=== PATIENT | male | born 1985 | race Caucasian/White ===

== ENCOUNTER → 2025-07-29 | Outpatient (CLI) | payer OTHER ==
--- NOTE | 2025-07-29 19:12 | HMCIMG ---
EXAM: MR RIGHT SHOULDER WITHOUT CONTRAST CLINICAL HISTORY: 39 year-old male with unspecified osteoarthritis. TECHNIQUE: Multiplanar multisequence magnetic resonance images were obtained WITHOUT contrast. CONTRAST: None COMPARISON: None FINDINGS: JOINTS: Mild degenerative changes of the acromioclavicular joint with mild capsule hypertrophy. Small glenohumeral joint effusion. BONE: No acute fracture or focal osseous lesion. SOFT TISSUES: Mild tendinopathy of supraspinatus and infraspinatus, but no discrete tear. Peripheral supraspinatus involvement. IMPRESSION: 1. Mild tendinopathy of supraspinatus and infraspinatus without discrete tear. 2. Small glenohumeral joint effusion. 3. Mild degenerative changes of the acromioclavicular joint with mild capsule hypertrophy. /[place]
== END | disposition home or self-care (01) ==
LOC: RAH 10:34
PROVIDERS: ATTEND Student in an Organized Health Care Education/Training Program
DX: M19.011 Primary osteoarthritis, right shoulder (principal); M25.811 Other specified joint disorders, right shoulder; M25.411 Effusion, right shoulder; M67.911 Unspecified disorder of synovium and tendon, right shoulder
CPT/HCPCS: 73221

== ENCOUNTER 2025-08-16 08:26 | Day surgery (SDC) | payer OTHER ==
[2025-08-14 10:25] LABS: IMMATURE GRANULOCYTE ABSOLUTE 0.01 K/uL (0-1); NUCLEATED RED BLOOD CELLS 0.0 % (0.0-0.19); PLATELET COUNT (AUTO) 285 K/uL (130-400); RED BLOOD CELL COUNT(AUTO) 4.61 MIL/uL (4.50-6.20); RED CELL DISTRIBUTION WIDTH 11.8 % (11.0-15.5); WHITE BLOOD COUNT (AUTO) 5.2 K/uL (4.8-10.8)
[2025-08-14 10:28] VITALS: BP 140/78; PULSE 77; RESP 13; TEMP 98.1
[2025-08-14 10:36] LABS: CREATININE 1.0 mg/dL (0.5-1.3); GLOMERULAR FILTR. RATE CALC 98.0 mL/min (>90); GLUCOSE,RANDOM 86.0 mg/dL (70-105); SODIUM SERUM 137.0 mmol/L (136-145); UREA NITROGEN, BLOOD 14.0 mg/dL (7-18)
[2025-08-14 10:38] LABS: INR 0.95 (0.85-1.15)
[~2025-08-16] VITALS: Ht 348 cm; Wt 105.3 kg
[2025-08-16] VITALS (12 sets, daily range): BP systolic 122–150; BP diastolic 56–88; PULSE 56–82; RESP 15–18; TEMP 97.3–97.8
[~2025-08-16 08:26] MED LIST: ZOLP-684 PO
[2025-08-16] MEDS: LACTATED RINGERS 1000ML 1,000 ML IV ONE (09:08)
[2025-08-16] MEDS ORDERED: LIDOCAINE PF 100MG/5ML (2%) SYRINGE 5ML ONE (10:20)
[2025-08-16] MEDS ORDERED: MIDAZOLAM HCL 1 MG/ML 2ML VIAL ONE (10:24)
[2025-08-16] MEDS ORDERED: HYDR-4060 PO (11:03)
[2025-08-16] MEDS ORDERED: CYCL-309 PO (11:03)
[2025-08-16] MEDS ORDERED: SUGAMMADEX SODIUM 200 MG/2 ML VIAL IV ONE (13:54)
--- NOTE | 2025-08-16 15:48 | OP ---
Operative Note: DATE OF PROCEDURE: 08/16/25 SURGEON: RUSTAM GAN MD MANAGER INTEGRATED: Ash [place] ANESTHESIA: General and interscalene block ANESTHESIOLOGIST/SALES DEVELOPMENT EXECUTIVE: Sam Chase PREOPERATIVE DIAGNOSIS: Right shoulder rotator cuff tear, subacromial impingement, AC joint osteoarthritis, biceps tendinitis POSTOPERATIVE DIAGNOSIS: Right shoulder rotator cuff tear, subacromial impingement, AC joint osteoarthritis, biceps tendinitis PROCEDURE: Right shoulder arthroscopic rotator cuff repair, biceps tenodesis, distal clavicle excision, subacromial debridement ESTIMATED BLOOD LOSS: 10 cc FINDINGS: On inserting the scope into the joint we noted there to be fairly significant pathology involving the biceps tendon especially at its insertion with very angry appearing tendon with some fibers torn. The labrum was redundant with fragments flipping into the joint mostly along the superior and anterior portions. Subscapularis was intact. Diffuse synovitis was present. An proximally 50% articular sided tear of the supraspinatus was present adjacent to the rotator interval. Posterior portion of the supraspinatus appeared intact as did the infraspinatus at its insertion site. We took down the long head of the biceps and debrided the labral tissue. The biceps was tenodesed using Arthrex loop N Tack. It was secured in the bicipital groove. We performed comp letion and repair of the anterior supraspinatus tear. We then performed a distal clavicle excision and subacromial decompression both with resection of bony tissue. INDICATIONS: 39-year-old male with a history of right shoulder pain. They were failing conservative management and found on MRI to have pathologic appearance of the biceps tendon in addition to partial-thickness tearing of the rotator cuff. Acromioclavicular joint was noted to have some arthritic changes with mass effect on the rotator cuff underlying this region. After discussion of the risk, benefits, and alternatives, the patient voluntarily agreed to undergo the aforementioned procedure. DESCRIPTION OF PROCEDURE: Patient was properly identified in the preoperative holding area. Surgical site marking was verified and surgery consent reviewed. The patient was then taken to the operating room and placed in supine position on the OR table. After induction of general anesthesia, preoperative antibiotics were given, all bony prominences were well-padded as the patient was transitioned into beachchair position. The right upper extremity was then prepped and draped in usual sterile fashion. Surgical timeout was done verifying correct surgery, side, site, and location to be performed. We then began the procedure by using an 18-gauge spinal needle to inject the shoulder joint with normal saline to distend the joint capsule. A posterior lateral portal was established using 11 blade and we inserted our arthroscope through this portal. We established an anterior portal using needle localization under direct visualization and placed a working cannula through this portal. We then performed a diagnostic arthroscopy with the aforementioned findings. We then evaluated the tearing of the labrum and debrided this back to a stable leading edge. We probed the long head of the biceps and noted it to be very pathologic with flattened in partial tearing noted. We then elected to perform a biceps tenodesis using the Arthrex loop and tack. We did establish an anterolateral portal were assistance in placing the suture anchor to secure the long head of the biceps. Using a spinal needle, we placed a suture marking the location of the partial-thickness supraspinatus tear. We then repositioned the arthroscope into the subacromial space along with a our working portal. The subacromial bursa was resected using the cautery device. Once we were able to find the suture marking our partial-thickness tear, we then completed the supraspinatus tear in the area that was probed we then. We debrided the footprint of the insertion site back to healthy bleeding bone. Using the STYLHUNT suture passer device, we then passed one FiberTape in a horizontal mattress pattern. These were then secured to the humerus using a single SwiveLock suture anchor. We then inserted the bur and performed our bony resection removing the lateral 8 mm from the distal clavicle. The undersurface of the acromion was also smoothed removing bone spurs from this region as well as resecting approximately 2 mm of bone from the undersurface. We then removed as much of the arthroscopic fluid as possible and removed the arthroscopic instruments and camera. We expressed some the remaining fluid from the surrounding soft tissues. 3-0 nylon was then used to close the skin portals. Sterile soft dressing was applied. Patient was then placed into a shoulder immobilizer, awakened from anesthesia, and taken the recovery room in stable condition. RUSTAM GAN MD Aug 16, 2025 15:48
== END 2025-08-16 15:58 | disposition home or self-care (01) ==
LOC: DAH 08:26
PROVIDERS: ATTEND Student in an Organized Health Care Education/Training Program
DX: M75.111 Incomplete rotator cuff tear or rupture of right shoulder, not specified as traumatic (principal); M25.811 Other specified joint disorders, right shoulder; M75.21 Bicipital tendinitis, right shoulder; M75.41 Impingement syndrome of right shoulder; M19.011 Primary osteoarthritis, right shoulder; F32.A Depression, unspecified; G47.00 Insomnia, unspecified; Z79.01 Long term (current) use of anticoagulants; Z79.899 Other long term (current) drug therapy
CPT/HCPCS: 80048; 85025; 85610; 85730; 36415; 29827; 29828; 29826; 29824; 64415; A4663; J7120 ×2; J3010; J1100; J3490 ×2; J2003; J0169 ×2; J2250; J2704; J2405 ×2; J2795; J0690 ×2; A6223; A4649; C1713 ×2; A5120; A4215; A4213; A4222; A4221; A4216; A4450; A4223 ×2; A4600